=== PATIENT | female | born 1980 | race Caucasian/White ===

== ENCOUNTER 2016-05-11 10:34 | Emergency (ER) | payer MEDICAID, OTHER ==
[~2016-05-11] VITALS: Ht 167.6 cm; Wt 55.0 kg
[2016-05-11 10:37] VITALS: BP 151/75; PULSE 112; RESP 18; TEMP 98.1; O2SAT 100
[2016-05-11 10:57] VITALS: BP 114/79; PULSE 95; RESP 18; O2SAT 99
--- NOTE | 2016-05-11 11:05 | PD ---
HPI Chief Complaint: Abdominal Pain Time Seen by Provider: 11:04 Travel History International Travel<30 days: No Contact w/Intl Traveler<30days: No Traveled to known affect area: No History of Present Illness HPI 35-year-old female came to the emergency room with history of intense backache for past 3 days. She had a fever of 102 last night. This morning she went to work and the pain worsened at which point she felt really lightheaded and almost passed out. Her coworker caught her from falling. Her coworker called her friend who brought her to the emergency room. Patient says that she has been taking Tylenol for the pain. Her last dose of Tylenol was 3 this morning. She seems pretty uncomfortable. She says usually she does not get sick and has never had this kind of pain before. No history of fall. No history of dysuria, hematuria, vomiting, constipation or diarrhea. Her daughter was sick last week for 3 days with vomiting and diarrhea. No history of cough or shortness of breath. Patient was tachycardic in triage initially. However once she was brought in the ER the heart rate had come down. [facility] Past Medical History Narrative Medical List of her past medical, surgical, social and family history as reviewed from the nursing note. Anemia: Yes Medical other: Yes (heart murmur) Respiratory: Yes (PNEUMOTHORAX BABY) Tetanus Vaccination: Never Vaccinated Influenza Vaccination: Yes ?: Not LMP: 02/2016 Tubal Ligation: Yes Past Surgical History Section: Yes Thoracic Surgery: Yes (PNEUMOTHORAX A BABY) Other Surgery: Yes (RIGHT FOOT SURGERY) Social History Alcohol Use: No Tobacco Use: Yes (3-4 cigs/day) Substance Use: Yes (rare marijuana) Allergies-Medications (Allergen,Severity, Reaction): Coded Allergies: No Known Allergies (Unverified , 05/11/16) Comments No known drug allergies. Reported Meds & Prescriptions Reported Meds & Active Scripts Active Omeprazole 20 Mg Tab 20 Mg PO DAILY Ibuprofen 400 Mg Tab 400 Mg PO Q6H PRN Narrative Medication List of her home medications reviewed from the nursing note. Review of Systems Except as stated in HPI: all other systems reviewed are Neg Physical Exam Narrative GENERAL: Awake, alert, anxious, moderate distress SKIN: Warm and dry. HEAD: Atraumatic. Normocephalic. EYES: Pupils equal and round. No scleral icterus. No injection or drainage. ENT: No nasal bleeding or discharge. Mucous membranes pink and moist. NECK: Trachea midline. No JVD. CARDIOVASCULAR: Regular rate and rhythm. No murmur appreciated. RESPIRATORY: No accessory muscle use. Clear to auscultation. Breath sounds equal bilaterally. GASTROINTESTINAL: Abdomen soft, non-tender, nondistended. Hepatic and splenic margins not palpable. MUSCULOSKELETAL: No obvious deformities. No clubbing. No cyanosis. No edema. Paraspinal spasm. Midline tenderness diffusely over the lower thoracic to lumbar area. Bilateral CVA tenderness. NEUROLOGICAL: Awake and alert. No obvious cranial nerve deficits. Motor grossly within normal limits. Normal speech. PSYCHIATRIC: Appropriate mood and affect; insight and judgment normal. Data Data Last Documented VS Orders Complete Blood Count With Diff (05/11/16 11:26) Comprehensive Metabolic Panel (05/11/16 11:26) Lipase (05/11/16 11:26) Urinalysis - C+S If Indicated (05/11/16 11:26) Ct Abd/Pel W/O Iv Contrast (05/11/16 11:26) Iv Access Insert/Monitor (05/11/16 11:26) Ecg Monitoring (05/11/16 11:26) Oximetry (05/11/16 11:26) Sodium Chlor 0.9% 1000 Ml Inj (Ns 1000 M (05/11/16 11:26) Sodium Chloride 0.9% Flush (Ns Flush) (05/11/16 11:30) Ed Urine Pregnancytest Poc (05/11/16 11:26) Lactic Acid (05/11/16 11:26) Blood Culture (05/11/16 11:26) Sodium Chlor 0.9% 1000 Ml Inj (Ns 1000 M (05/11/16 11:30) Ketorolac Inj (Toradol Inj) (05/11/16 11:30) Potassium Chloride (Kcl) (05/11/16 13:15) Orthostatic Vital Signs (05/11/16 13:12) Labs MDM Medical Decision Making Medical Screen Exam Complete: Yes Emergency Medical Condition: Yes Medical Record Reviewed: Yes Differential Diagnosis Pyelonephritis, sepsis, renal colic, UTI Narrative Course 12:24 PM awaiting for the blood test result, urine analysis and the CAT scan report. Medicated for pain and getting IV fluid bolus. 1:24 PM blood test results are back and within normal limit except for anemia. Patient has a known history of anemia since childhood. CT abdomen and pelvis did not show any ureteral calculi. UA was within normal limits. Patient was ambulated and she did well. At this point I do not have any other diagnosis and viral illness for her symptoms and presentation. I will discharge her home. Received total of 2 L of IV fluid and says she feels better. Procedures EKG Prior to Arrival: No Diagnosis Primary Impression: Pre-syncope Additional Impressions: Viral illness Back pain Qualified Code: M54.5 - Acute bilateral low back pain without sciatica Referrals: Primary Care Physician 2 days Departure Forms: Tests/Procedures, Work Release Enter return to work date: May 12, 2016 Additional Instructions: Please return to the ER if the condition worsens or any other new concerns. Take Motrin/ibuprofen/Advil for your pain as needed. Follow up with your primary care in couple days. Med/Other Pt SpecificInfo: Prescription(s) given Scripts Omeprazole 20 Mg Tab20 Mg PO DAILY #14 TAB Ref 0 Prov:Jovanna Phoenix MD 05/11/16 Ibuprofen 400 Mg Ihm035 Mg PO Q6H PRN (pain) #30 TAB Ref 0 Prov:Jovanna Phoeinx MD 05/11/16 Disposition: 01 DISCHARGE HOME Condition: Stable Jovanna Phoenix MD May 11, 2016 11:05 Urine Squamous Epithelial 7 /hpf Cells Urine Bacteria FEW /hpf Urine Mucus FEW /lpf Microscopic Urinalysis Comment CULT NOT INDICATED White Blood Count 6.9 TH/MM3 Red Blood Count 5.22 MIL/MM3 Hemoglobin 8.5 GM/DL Hematocrit 29.7 % Mean Corpuscular Volume 56.9 FL Mean Corpuscular Hemoglobin 16.3 PG Mean Corpuscular Hemoglobin 28.7 % Concent Red Cell Distribution Width 23.8 % Platelet Count 257 TH/MM3 Mean Platelet Volume 9.3 FL Neutrophils (%) (Auto) 62.7 % Lymphocytes (%) (Auto) 31.2 % Monocytes (%) (Auto) 4.4 % Eosinophils (%) (Auto) 1.2 % Basophils (%) (Auto) 0.5 % Neutrophils # (Auto) 4.3 TH/MM3 Lymphocytes # (Auto) 2.1 TH/MM3 Monocytes # (Auto) 0.3 TH/MM3 Eosinophils # (Auto) 0.1 TH/MM3 Basophils # (Auto) 0.0 TH/MM3 CBC Comment AUTO DIFF Differential Comment AUTO DIFF CONFIRMED Target Cells 1+ Keratocytes OCC Sodium Level 141 MEQ/L Potassium Level 3.4 MEQ/L Chloride Level 106 MEQ/L Carbon Dioxide Level 26.3 MEQ/L Anion Gap 9 MEQ/L Blood Urea Nitrogen 7 MG/DL Creatinine 0.55 MG/DL Estimat Glomerular Filtration 124 ML/MIN Rate Random Glucose 144 MG/DL Calcium Level 8.5 MG/DL Total Bilirubin 0.3 MG/DL Aspartate Amino Transf 14 U/L (AST/SGOT) Alanine Aminotransferase 25 U/L (ALT/SGPT) Alkaline Phosphatase 85 U/L Total Protein 7.8 GM/DL Albumin 4.1 GM/DL Lipase 116 U/L Lactic Acid Level 2.0 mmol/L MDM Medical Decision Making Medical Screen Exam Complete: Yes Emergency Medical Condition: Yes Medical Record Reviewed: Yes Differential Diagnosis Pyelonephritis, sepsis, renal colic, UTI Narrative Course 12:24 PM awaiting for the blood test result, urine analysis and the CAT scan report. Medicated for pain and getting IV fluid bolus. 1:24 PM blood test results are back and within normal limit except for anemia. Patient has a known history of anemia since childhood. CT abdomen and pelvis did not show any ureteral calculi. UA was within normal limits. Patient was ambulated and she did well. At this point I do not have any other diagnosis and viral illness for her symptoms and presentation. I will discharge her home. Received total of 2 L of IV fluid and says she feels better. Procedures EKG Prior to Arrival: No Diagnosis Primary Impression: Pre-syncope Additional Impressions: Viral illness Back pain Qualified Code: M54.5 - Acute bilateral low back pain without sciatica Referrals: Primary Care Physician 2 days Departure Forms: Tests/Procedures, Work Release Enter return to work date: May 12, 2016 Additional Instructions: Please return to the ER if the condition worsens or any other new concerns. Take Motrin/ibuprofen/Advil for your pain as needed. Follow up with your primary care in couple days. Med/Other Pt SpecificInfo: Prescription(s) given Scripts Omeprazole 20 Mg Tab20 Mg PO DAILY #14 TAB Ref 0 Prov:Jovanna Phoenix MD 05/11/16 Ibuprofen 400 Mg [id number] Mg PO Q6H PRN (pain) #30 TAB Ref 0 Prov:Jovanna Phoenix MD 05/11/16 Disposition: 01 DISCHARGE HOME Condition: Stable Jovanna Phoenix MD May 11, 2016 11:05
[2016-05-11] MEDS ORDERED: SODIUM CHLOR 0.9% 1000 ML INJ 1,000 ML IV SCH (11:26)
[2016-05-11 11:30] LABS: MEAN CORPUSCULAR HGB CONC 28.7 % (32.0-36.0)
[2016-05-11] MEDS ORDERED: SODIUM CHLORIDE 0.9% FLUSH 5 ML FLUSH IVF PRN (11:30)
[2016-05-11] MEDS ORDERED: SODIUM CHLOR 0.9% 1000 ML INJ 1,000 ML IV ONE (11:30)
[2016-05-11] MEDS ORDERED: KETOROLAC TROMETHAMINE 30 MG/ML (IVP) VIAL IV PUSH ONE (11:30)
[2016-05-11 11:35] VITALS: BP 105/66; PULSE 78; RESP 18; TEMP 98.3; O2SAT 99
[2016-05-11 12:24] LABS: AUTOMATED NEUTROPHIL # 4.3 TH/MM3 (1.8-7.7); BASOPHIL % 0.5 % (0.0-2.0); EOSINOPHIL # 0.1 TH/MM3 (0-0.4); EOSINOPHIL % 1.2 % (0.0-4.0); HEMATOCRIT 29.7 % (35.0-46.0); LYMPH % 31.2 % (9.0-44.0); LYMPHOCYTE # 2.1 TH/MM3 (1.0-4.8); MEAN CELL VOLUME 56.9 FL (80.0-100.0); MEAN CORPUSCULAR HEMOGLOBIN 16.3 PG (27.0-34.0); MONO % 4.4 % (0.0-8.0); NEUT % 62.7 % (16.0-70.0); PLATELET COUNT 257 TH/MM3 (150-450); RED BLOOD COUNT 5.22 MIL/MM3 (4.00-5.30); RED CELL DISTRIBUTION WIDTH 23.8 % (11.6-17.2); WHITE BLOOD COUNT 6.9 TH/MM3 (4.0-11.0)
[2016-05-11 12:28] LABS: HEMO FLAGS AUTO DIFF
[2016-05-11 12:40] LABS: BACTERIA, URINE FEW /hpf; BLOOD, URINE NEG (NEG); COMMENT (UR) CULT NOT INDICATED; CULTURE IF INDICATED CULT NOT INDICATED; GLUCOSE,URINE NEG (NEG); KETONE, URINE NEG (NEG); MUCUS URINE FEW /lpf (OCC); NITRITE,URINE NEG (NEG); SQUAMOUS EPITHELIAL CELL URINE 7 /hpf (0-5); URINE COLOR YELLOW (YELLW/STRAW)
[2016-05-11 12:44] LABS: ALT (GPT) 25 U/L (10-53); ANION GAP 9 MEQ/L (5-15); AST (GOT) 14 U/L (15-37); BICARBONATE 26.3 MEQ/L (21.0-32.0); BLOOD UREA NITROGEN 7 MG/DL (7-18); CHLORIDE 106 MEQ/L (98-107); GLOMERULAR FILTRATION RATE 124 ML/MIN (>89); POTASSIUM 3.4 MEQ/L (3.5-5.1); SODIUM (NA) 141 MEQ/L (136-145)
[2016-05-11 12:46] LABS: ALKALINE PHOSPHATASE 85 U/L (45-117); TOTAL BILIRUBIN ADULT 0.3 MG/DL (0.2-1.0)
--- NOTE | 2016-05-11 12:57 | RADRPT ---
EXAM DATE/TIME: 05/11/2016 12:00 [facility] COMPARISON: No previous studies available for comparison. INDICATIONS : Lower abdomen pain and back pain for afew days. ORAL CONTRAST: No oral contrast ingested. RADIATION DOSE: 13.28 CTDIvol (mGy) MEDICAL HISTORY : Heart murmur SURGICAL HISTORY : Tubal ligation. ENCOUNTER: Initial ACUITY: 2 days PAIN SCALE: 10/10 LOCATION: Abdomen TECHNIQUE: Volumetric scanning of the abdomen and pelvis was performed. Using automated exposure control and ad justment of the mA and/or kV according to patient size, radiation dose was kept as low as reasonably achievable to obtain optimal diagnostic quality images. FINDINGS: LOWER LUNGS: The visualized lower lungs are clear. LIVER: Homogeneous density without lesion. There is no dilation of the biliary tree. No calcified gallston es. SPLEEN: Normal size without lesion. PANCREAS: Within normal limits. KIDNEYS: Normal in size and shape. There is no mass, stone, or hydronephrosis except for 1 mm stone mid pole right kidney. ADRENAL GLANDS: Within normal limits. VASCULAR: There is no aortic aneurysm. BOWEL/MESENTERY: The stomach, small bowel, and colon demonstrate no acute abnormality. There is no free intraperitone al air or fluid. ABDOMINAL WALL: Within normal limits. RETROPERITONEUM: There is no lymphadenopathy. BLADDER: No wall thickening or mass. REPRODUCTIVE: Within normal limits. INGUINAL: There is no lymphadenopathy or hernia. MUSCULOSKELETAL: Within normal limits for patient age. CONCLUSION: Normal examination except for 1 mm stone mid pole right kidney. The appendix is normal. John Leonard MD on May 11, 2016 at 12:54 Board Certified Radiologist. This report was verified electronically.
[2016-05-11 13:04] LABS: KERATOCYTES OCC (NORMAL); TARGET CELLS 1+ (NORMAL)
[2016-05-11 13:05] LABS: SCAN/DIFF AUTO DIFF CONFIRMED
[2016-05-11] MEDS ORDERED: POTASSIUM CHLORIDE 20 MEQ CONTROLLED RELEASE TAB PO ONE (13:15)
[2016-05-11 13:17] VITALS: BP_SYST 108; BP_SYST 111; BP_SYST 122; BP_DIAS 65; BP_DIAS 70; BP_DIAS 83; RESP 18
[2016-05-11] MEDS ORDERED: OMEP20TA PO (13:28)
[2016-05-11] MEDS ORDERED: IBUP400T20 PO (13:28)
== END 2016-05-11 14:24 | disposition home or self-care (01) ==
LOC: NEPA 10:34
DX: R55 Syncope and collapse (principal); B34.9 Viral infection, unspecified; M54.9 Dorsalgia, unspecified; R10.30 Lower abdominal pain, unspecified
CPT/HCPCS: 74176; 80053; 81001; 83605; 83690; 84703; 85025; 87040; 96361; 96374; 99284; J1885; J7030

== ENCOUNTER 2016-05-27 16:06 | Emergency (ER) | payer MEDICAID, OTHER ==
[~2016-05-27] VITALS: Ht 167.6 cm; Wt 58.0 kg
[~2016-05-27 16:06] MED LIST: IBUP400T20 PO; OMEP20TA PO
[2016-05-27 16:08] VITALS: BP 120/56; PULSE 99; RESP 20; TEMP 98.3; O2SAT 98
[2016-05-27] MEDS ORDERED: KETOROLAC TROMETHAMINE 60 MG/2 ML (IM) VIAL IM ONE (17:00)
[2016-05-27] MEDS ORDERED: CYCL1TAB29 PO (17:00)
[2016-05-27] MEDS ORDERED: ORPHENADRINE INJ 60 MG/2 ML AMP IM ONE (17:00)
[2016-05-27] MEDS ORDERED: IBUP800T23 PO (17:00)
--- NOTE | 2016-05-27 17:00 | PD ---
HPI Chief Complaint: Pain: Acute or Chronic Time Seen by Provider: 16:53 Travel History International Travel<30 days: No Contact w/Intl Traveler<30days: No Traveled to known affect area: No History of Present Illness HPI 35-year-old female presents to the emergency Department with complaint of left shoulder pain 1-1/2 weeks. She did heavy lifting at work and moving furniture and has been trying to deal with the pain. The pain has gotten worse over the last 3 days with decreased range of motion and cannot tolerate it anymore. She' s been taking ibuprofen and Tylenol. At first she had good relief of pain and then recently she's only had minimal amount of pain relief. She has not tried any other treatments to alleviate her symptoms. She denies paresthesias, loss of sensation to the affected extremity. Reports decreased range of motion at the shoulder and decreased strength to the affected extremity. Denies fever, chills, nausea, vomiting. Denies chest pain, shortness breath, abdominal pain. No known allergies. No other modifying factors or associated signs and symptoms. PFSH Past Medical History Anemia: Yes Respiratory: Yes (PNEUMOTHORAX BABY) ?: Not LMP: 2 WEEKS AGO Tubal Ligation: Yes Past Surgical History Section: Yes Thoracic Surgery: Yes (PNEUMOTHORAX A BABY) Other Surgery: Yes (RIGHT FOOT SURGERY) Social History Alcohol Use: No Tobacco Use: Yes (3-4 cigs/day) Substance Use: Yes (rare marijuana) Allergies-Medications (Allergen,Severity, Reaction): Coded Allergies: No Known Allergies (Unverified , 05/27/16) Reported Meds & Prescriptions Reported Meds & Active Scripts Active Flexeril (Cyclobenzaprine HCl) 10 Mg Tab 10 Mg PO TID PRN Ibuprofen 800 Mg Tab 800 Mg PO Q6HR PRN Ibuprofen 400 Mg Tab 400 Mg PO Q6H PRN Review of Systems Except as stated in HPI: all other systems reviewed are Neg Physical Exam Narrative GENERAL: Well-nourished, well-developed female patient, in no acute distress SKIN: Warm and dry. HEAD: Atraumatic. Normocephalic. EYES: Pupils equal and round. No scleral icterus. No injection or drainage. ENT: Mucosa pink and moist. Airway patent. NECK: Supple. Trachea midline. CARDIOVASCULAR: Regular rate. RESPIRATORY: No accessory muscle use. GASTROINTESTINAL: Flat. MUSCULOSKELETAL: Left shoulder with limited range of motion and less than 45 abduction; decreased lead web developer strength; no obvious deformity; with tenderness on palpation to the anterior and posterior aspects; shoulders equal; joint stable. Left upper extremity is supple and non-tense with 2+ radial pulse and sensory intact and without erythema or edema. Bicep tendon intact and palpable and bicep area is normal-appearing and without tenderness on palpation. No obvious deformities. No clubbing. No cyanosis. No edema. NEUROLOGICAL: Awake and alert. Oriented 3. No obvious cranial nerve deficits. Motor grossly within normal limits. Normal speech. PSYCHIATRIC: Appropriate mood and affect; insight and judgment normal. Data Data Last Documented VS Vital Signs Date Time Temp Pulse Resp B/P Pulse Ox O2 Delivery O2 Flow Rate FiO2 05/27/16 16:08 98.3 99 20 120/56 98 Room Air Orders Shoulder, Complete (>2vws) (05/27/16 16:50) Ketorolac Inj (Toradol Inj) (05/27/16 17:00) Orphenadrine Inj (Norflex Inj) (05/27/16 17:00) Sling Cradle Arm (05/27/16 ) MDM Medical Decision Making Medical Screen Exam Complete: Yes Emergency Medical Condition: Yes Medical Record Reviewed: Yes Differential Diagnosis Rotator cuff tear, shoulder strain, ligament tear, less likely bicep tendon tear Narrative Course 35-year-old female with left shoulder pain times one and half weeks after lifting and moving heavy objects. Left shoulder is with decreased range of motion and less than 45 abduction. Joint is stable. Toradol and Norflex administered in the ER. Left shoulder x-ray ordered. 1731: Shoulder x-ray with no acute findings. Arm sling provided for support. Ibuprofen and Flexeril prescribed for home. Instructed patient to follow up with orthopedic. Patient verbalizes understanding and agreement with treatment plan. Patient is medically cleared and stable for discharge. Discussed reasons to return to the emergency department. Instructed patient to follow up with primary care provider. Patient agrees with treatment plan. The patients vital signs are stable and the patient is stable for outpatient follow-up and treatment. Patient discharged home, stable and in no acute distress. Diagnosis Primary Impression: Sprain of left shoulder Qualified Code: S43.402A - Sprain of left shoulder, unspecified shoulder sprain type, initial encounter Additional Impression: Shoulder pain, left Qualified Code: M25.512 - Left shoulder pain, unspecified chronicity Referrals: Orthopaedic Surgeon Primary Care Physician Patient Instructions: General Instructions, Shoulder Pain (ED), Shoulder Sprain (ED) Departure Forms: Tests/Procedures, Work Release Enter return to work date: Jun 03, 2016 Additional Instructions: Tylenol or ibuprofen as needed and as directed to reduce pain and inflammation Flexeril as prescribed and as needed for muscle spasms Rest, ice, and compress extremity to decrease pain and inflammation Arm sling for support as needed Avoid aggravating activity; increase activity as tolerated Follow-up with primary care provider Follow-up with orthopedics Return to the emergency department immediately with worsening symptoms Med/Other Pt SpecificInfo: Prescription(s) given Scripts Cyclobenzaprine (Flexeril)10 Mg Tab10 Mg PO TID PRN (MUSCLE SPASM) #30 TAB Ref 0 Prov:Nathalie Toribio 05/27/16 Ibuprofen 800 Mg [id number] Mg PO Q6HR PRN (PAIN) #30 TAB Ref 0 Prov:Nathalie Toribio 05/27/16 Disposition: 01 DISCHARGE HOME Condition: Stable Nathalie Toribio May 27, 2016 17:00
--- NOTE | 2016-05-27 17:19 | RADRPT ---
EXAM DATE/TIME: 05/27/2016 17:17 [facility] COMPARISON: No previous studies available for comparison. INDICATIONS : Patient states no known injury. She lifts heavy objects for work and has been lifting a lot during he r moving process. MEDICAL HISTORY : None. SURGICAL HISTORY : None. ENCOUNTER: Initial ACUITY: 1 week PAIN SCORE: 9/10 LOCATION: Left Shoulder. FINDINGS: Multiple view examination of the left shoulder demonstrates no evidence of fracture or dislocation. The glenohumeral and acromioclavicular joints are maintained. There is normal range of motion betwee n internal and external rotation. Bony mineralization is normal. CONCLUSION: Unremarkable examination of the left shoulder. Tc Blandon MD on May 27, 2016 at 17:16 Board Certified Radiologist. This report was verified electronically.
== END 2016-05-27 18:14 | disposition home or self-care (01) ==
LOC: NEPB 16:06
DX: S43.402A Unspecified sprain of left shoulder joint, initial encounter (principal); X50.0XXA Overexertion from strenuous movement or load, initial encounter; X50.9XXA Other and unspecified overexertion or strenuous movements or postures, initial encounter; Y93.89 Activity, other specified; Y92.9 Unspecified place or not applicable
CPT/HCPCS: 73030; 96372; 99283; J1885; J2360